=== PATIENT | female | born 1935 | race Caucasian/White ===

== ENCOUNTER 2020-07-28 14:32 | Observation (INO) | payer OTHER ==
[~2020-07-28] VITALS: Ht 165.1 cm; Wt 72.1 kg
[2020-07-28 16:05] LABS: BASOPHILS # (AUTO) 0.1 (0.0-0.1); BASOPHILS % 0.6 % (0.0-1.0); EOSINOPHILS # (AUTO) 0.1 (0.0-0.4); EOSINOPHILS % 0.6 % (0.0-6.0); HEMATOCRIT 44.4 % (34.2-44.1); HEMOGLOBIN 14.4 g/dL (12.0-16.0); LYMPHOCYTES # (AUTO) 1.5 (1.0-3.2); MEAN CORPUSCULAR HEMOGLOBIN 28.4 pg (28-32); MEAN CORPUSCULAR HGB CONC 32.4 g/dL (31-35); MEAN CORPUSCULAR VOLUME 87.6 fL (81-99); MONOCYTES # (AUTO) 1.1 (0.2-0.8); MONOCYTES % 8.8 % (4.4-11.3); NEUTROPHILS # (AUTO) 9.8 (2.1-6.9); NEUTROPHILS % 77.4 % (38.7-80.0); PLATELET COUNT 341 x10e3/uL (140-360); RED BLOOD COUNT 5.07 x10e6/uL (3.6-5.1); RED CELL DISTRIBUTION WIDTH 13.2 % (11.7-14.4)
[2020-07-28 16:29] LABS: ALANINE AMINOTRANSFERASE 32 IU/L (0-55); ALBUMIN 4.4 g/dL (3.5-5.0); ALBUMIN/GLOBULIN RATIO 1.5 (0.8-2.0); ALKALINE PHOSPHATASE 75 IU/L (40-150); ANION GAP 14.8 mmol/L (8-16); BLOOD UREA NITROGEN 27 mg/dL (7-26); BUN/CREATININE RATIO 40 (6-25); CALCIUM 9.6 mg/dL (8.4-10.2); CARBON DIOXIDE 26 mmol/L (22-29); CHLORIDE 102 mmol/L (98-107); CREATINE KINASE 1112 IU/L (29-168); CREATININE, SERUM 0.68 mg/dL (0.57-1.11); EST GLOMERULAR FILTRATION RATE > 60 ML/MIN (60-); GLUCOSE 111 mg/dL (74-118); POTASSIUM 3.8 mmol/L (3.5-5.1); SODIUM 139 mmol/L (136-145)
[2020-07-28] MEDS ORDERED: ASPIRIN 81 MG CHEW TAB PO ONE (17:00)
[2020-07-28 20:10] VITALS: BP 152/92
[2020-07-28] MEDS ORDERED: ONDANSETRON HCL INJ 2MG/ML 2ML 2 MG/ML VIAL IV PRN (21:00)
[2020-07-28 21:14] VITALS: BP 152/92
[2020-07-28 21:52] VITALS: BP 152/92
[2020-07-28] MEDS ORDERED: INFLUENZA VIRUS VAC SPLIT INJ 0.5 ML SYR IM SCH (21:58)
[2020-07-28] MEDS: ACETAMINOPHEN 325 MG TAB PO PRN (22:45)
[2020-07-28] MEDS: SODIUM CHLORIDE 0.9% 1000ML 1,000 ML IV SCH (22:45)
[2020-07-29] VITALS: BP 141/74
[2020-07-29 04:10] VITALS: BP 133/79
[2020-07-29] MEDS: SODIUM CHLORIDE 0.9% 1000ML 1,000 ML IV SCH ×2 (05:00→14:22)
[2020-07-29 06:25] LABS: BASOPHILS # (AUTO) 0.1 (0.0-0.1); BASOPHILS % 0.7 % (0.0-1.0); EOSINOPHILS # (AUTO) 0.4 (0.0-0.4); EOSINOPHILS % 3.4 % (0.0-6.0); HEMATOCRIT 41.2 % (34.2-44.1); HEMOGLOBIN 13.4 g/dL (12.0-16.0); LYMPHOCYTES # (AUTO) 2.5 (1.0-3.2); LYMPHOCYTES % 23.1 % (18.0-39.1); MEAN CORPUSCULAR HEMOGLOBIN 28.8 pg (28-32); MEAN CORPUSCULAR HGB CONC 32.5 g/dL (31-35); MEAN CORPUSCULAR VOLUME 88.4 fL (81-99); MONOCYTES # (AUTO) 1.3 (0.2-0.8); MONOCYTES % 11.7 % (4.4-11.3); NEUTROPHILS # (AUTO) 6.5 (2.1-6.9); NEUTROPHILS % 60.4 % (38.7-80.0); PLATELET COUNT 288 x10e3/uL (140-360); RED BLOOD COUNT 4.66 x10e6/uL (3.6-5.1)
[2020-07-29 06:42] LABS: ALANINE AMINOTRANSFERASE 28 IU/L (0-55); ALBUMIN/GLOBULIN RATIO 1.3 (0.8-2.0); ALKALINE PHOSPHATASE 78 IU/L (40-150); ANION GAP 13.6 mmol/L (8-16); BLOOD UREA NITROGEN 23 mg/dL (7-26); BUN/CREATININE RATIO 37 (6-25); CALCIUM 8.5 mg/dL (8.4-10.2); CARBON DIOXIDE 25 mmol/L (22-29); CHLORIDE 107 mmol/L (98-107); CREATININE, SERUM 0.62 mg/dL (0.57-1.11); EST GLOMERULAR FILTRATION RATE > 60 ML/MIN (60-); GLUCOSE 99 mg/dL (74-118); POTASSIUM 3.6 mmol/L (3.5-5.1); SODIUM 142 mmol/L (136-145)
[2020-07-29 07:04] LABS: ALBUMIN 3.4 g/dL (3.5-5.0)
[2020-07-29 08:13] VITALS: BP 136/64
[2020-07-29 08:49] LABS: CREATINE KINASE MB 4.4 ng/mL (0-5.0)
[2020-07-29] MEDS ORDERED: NEURONTIN300 MG PO (14:04)
[2020-07-29] MEDS ORDERED: METOPROLOL TART50 MG PO (14:04)
[2020-07-29] MEDS ORDERED: MECLIZINE HCL12.5 MG PO (14:04)
[2020-07-29] MEDS ORDERED: PREMARIN0.3 MG PO (14:04)
[2020-07-29 14:22] LABS: CREATINE KINASE MB 3.8 ng/mL (0-5.0)
[2020-07-29 16:30] VITALS: BP 128/62
[2020-07-29] MEDS: ACETAMINOPHEN 325 MG TAB PO PRN (17:21)
[2020-07-29 19:40] VITALS: BP 135/89
[2020-07-29 20:00] VITALS: BP 135/89
[2020-07-30] VITALS: BP 168/97
[2020-07-30] MEDS ORDERED: QUETIAPINE FUMARATE 25 MG TAB PO ONE
[2020-07-30] MEDS ORDERED: ROPINIROLE HCL 0.25 MG TAB PO ONE
[2020-07-30] MEDS ORDERED: METOPROLOL SUCCINATE 25 MG TAB XL PO ONE
[2020-07-30] MEDS: SODIUM CHLORIDE 0.9% 1000ML 1,000 ML IV SCH ×2 (01:40→05:00)
[2020-07-30 04:00] VITALS: BP 113/69
[2020-07-30] MEDS ORDERED: MECLIZINE HCL 12.5 MG TAB PO ONE (08:00)
[2020-07-30 08:05] VITALS: BP 113/69
[2020-07-30 08:26] VITALS: BP 113/69
[2020-07-30] MEDS ORDERED: METOPROLOL SUCCINATE 25 MG TAB XL PO SCH (09:00)
[2020-07-30] MEDS: ACETAMINOPHEN 325 MG TAB PO PRN (10:07)
[2020-07-30] MEDS ORDERED: REQUIP0.25 MG PO (10:51)
[2020-07-30] MEDS ORDERED: METOPROLOL SUCC25 MG PO (10:52)
[2020-07-30] MEDS ORDERED: TYLENOL325 MG PO (10:53)
[2020-07-30] MEDS ORDERED: ROPINIROLE HCL 0.25 MG TAB PO SCH (18:00)
[2020-07-31] MEDS ORDERED: MECLIZINE HCL 12.5 MG TAB PO SCH (09:00)
== END 2020-07-30 12:52 ==
LOC: ER 14:47 → ERHOLD 16:49 → MED/SURG 19:33
PROVIDERS: ADMIT Internal Medicine; ATTEND Internal Medicine
DX: M62.82 Rhabdomyolysis (principal); R55 Syncope and collapse; I48.91 Unspecified atrial fibrillation; Z91.81 History of falling; I10 Essential (primary) hypertension; E11.9 Type 2 diabetes mellitus without complications; F03.90 Unspecified dementia, unspecified severity, without behavioral disturbance, psychotic disturbance, mood disturbance, and anxiety; Z20.822 Contact with and (suspected) exposure to COVID-19
CPT/HCPCS: 36415 ×2; 70450; 72131; 80053 ×2; 82550 ×2; 82553 ×2; 84484 ×2; 85025 ×2; 93005 ×2; 93306; 93880; 97116 ×2; 97139; 97162; 97530 ×2; 99284; G0378 ×3; J7030 ×2; J8597; U0002

== ENCOUNTER 2020-08-12 17:24 | Emergency (ER) | payer OTHER ==
[~2020-08-12] VITALS: Ht 165.1 cm; Wt 72.1 kg
[~2020-08-12 17:24] MED LIST: MECLIZINE HCL12.5 MG PO; METOPROLOL SUCC25 MG PO; METOPROLOL TART50 MG PO; NEURONTIN300 MG PO; PREMARIN0.3 MG PO; REQUIP0.25 MG PO; TYLENOL325 MG PO
[2020-08-12 22:08] VITALS: BP 133/74
== END 2020-08-12 22:33 | disposition home or self-care (01) ==
LOC: ER 17:30
DX: S39.012A Strain of muscle, fascia and tendon of lower back, initial encounter (principal); W01.0XXA Fall on same level from slipping, tripping and stumbling without subsequent striking against object, initial encounter; Y93.01 Activity, walking, marching and hiking; Y92.192 Bathroom in other specified residential institution as the place of occurrence of the external cause; I10 Essential (primary) hypertension; E03.9 Hypothyroidism, unspecified
CPT/HCPCS: 70450; 71250; 72125; 72128; 72192; 99284